=== PATIENT | female | born 1965 | race African-American/Black ===

== ENCOUNTER 2018-04-18 07:42 | Emergency (ER) | payer OTHER ==
[2018-04-18 08:03] VITALS: BP 152/95
[2018-04-18] MEDS ORDERED: BENZTROPINE MESYLATE 1 MG TABLET PO ONE (08:56)
--- NOTE | 2018-04-18 08:57 | ER Document Report ---
ED General - General Chief Complaint: Psych Problem Stated Complaint: AUDITORY HALLUCINATIONS Time Seen by Provider: 04/18/18 08:50 Mode of Arrival: Ambulatory Information source: Patient TRAVEL OUTSIDE OF THE [place] IN LAST 30 DAYS: No - HPI Notes: 52-year-old female with a medical history of schizoaffective disorder. presents to the ED with complaints of having auditory hallucinations in which the voices want to harm her, patient has been out of her Cogentin for the last few days since sheAnd having paranoia is on vacation to visit her from [place]. Denies any suicidal or homicidal ideation. Patient was recently hospitalized 2 weeks ago and [place] for schizoaffective disorder and medications will be adjusted. Denies fevers, chills, chest pain,palpitations, shortness of breath, dyspnea, nausea, vomiting, diarrhea, abdominal pain, hematuria,blurred vision, double vision, loss of vision, speech changes, LH, dizziness, syncope, headaches, wheezing, ST, URI, neck pain, weakness, bowel or bladder dysfunction, saddle anesthesia, numbness or tingling in bilateral upper or lower extremities equally, muscle paralysis, weakness in bilateral upper or lower extremities equally or rash. Denies IV drug use. - Related Data Allergies/Adverse Reactions: No Known Allergies Allergy (Verified 04/18/18 14:32) Past Medical History - General Information source: Patient - Social History Smoking Status: Current Every Day Smoker Chew tobacco use (# tins/day): No Frequency of alcohol use: Occasional Drug Abuse: None Family History: Reviewed & Not Pertinent Patient has suicidal ideation: No Patient has homicidal ideation: No Renal/ Medical History: Denies: Hx Peritoneal Dialysis Review of Systems - Review of Systems Constitutional: No symptoms reported EENT: No symptoms reported Cardiovascular: No symptoms reported Respiratory: No symptoms reported Gastrointestinal: No symptoms reported Genitourinary: No symptoms reported Female Genitourinary: No symptoms reported Musculoskeletal: No symptoms reported Skin: No symptoms reported Hematologic/Lymphatic: No symptoms reported Neurological/Psychological: See HPI, Hallucinations Physical Exam - Vital signs Vitals: Temp Pulse Resp BP Pulse Ox 98.7 F 90 16 152/95 H 98 04/18/18 07:52 04/18/18 07:52 04/18/18 07:52 04/18/18 07:52 04/18/18 07:52 - Notes Notes: PHYSICAL EXAMINATION: GENERAL: Well-appearing, well-nourished and in no acute distress. HEAD: Atraumatic, normocephalic. EYES: Pupils equal round and reactive to light, extraocular movements intact, conjunctiva are normal. ENT: Nares patent, oropharynx clear without exudates. Moist mucous membranes. NECK: Normal range of motion, supple without lymphadenopathy LUNGS: Breath sounds clear to auscultation bilaterally and equal. No wheezes rales or rhonchi. HEART: Regular rate and rhythm without murmurs ABDOMEN: Soft, nontender, nondistended abdomen. No guarding, no rebound. No masses appreciated. Female : deferred Musculoskeletal: Normal range of motion, no pitting or edema. No cyanosis. NEUROLOGICAL: Cranial nerves grossly intact. Normal speech, normal gait. Normal sensory, motor exams PSYCH: Normal mood, normal affect. SKIN: Warm, Dry, normal turgor, no rashes or lesions noted. Course - Re-evaluation Re-evalutation: 04/18/18 09:04 52-year-old female presents to the ED for evaluation due to having auditory hallucinations due to not being on her medication since she is traveling out of [facility] and left her medications at home. Patient denies any suicidal or homicidal ideations. Patient states she is feeling paranoid. Patient states she does not have her Cogentin 1 mg. Patient was recently hospitalized in [place] for mental health evaluation which they were switching her between Abilify and Latuda however they settled on Zyprexa and Cogentin. Patient has a follow-up primary care and psychiatric appointment on April 23, and 25 of April. Mental health consult was placed. Patient given 1 g of Cogentin now. Patient does not appear to be suicidal homicidal at this time. Dr. Brent Calhoun assessed patient, made medication adjustments with Thorazine every 8 hours 25 mg tablets prn as well as Cogentin 1 mg twice daily along with her taking her Zyprexa. Patient is safe, denies any homicidal suicidal ideation. States she does need medication adjustment. 04/18/18 09:38 NEEDS TO PUT IN LABS - Vital Signs Vital signs: Temp Pulse Resp BP Pulse Ox 98.7 F 90 16 152/95 H 98 04/18/18 07:52 04/18/18 07:52 04/18/18 07:52 04/18/18 07:52 04/18/18 07:52 - Laboratory Result Diagrams: 04/18/18 09:00 04/18/18 09:00 Laboratory results interpreted by me: 04/18/18 09:00 Sodium 146.4 H Glucose 114 H Discharge - Discharge Clinical Impression: Schizo affective schizophrenia Condition: Stable Disposition: HOME, SELF-CARE Instructions: Schizophrenia ([facility]) Additional Instructions: You are seen by mental health team today, they suggested starting on 12/11/2024 milligrams every 8 hours as needed, also would like you to take Cogentin 1 mg twice a day along with her Zyprexa. Please follow-up with mental health is Danielbakari has scheduled. If you experience any worsening auditory hallucinations, intent to harm himself or others please return to the emergency room by EMS after calling 911 Return immediately for any new or worsening symptoms. Follow up with primary care provider, call tomorrow to make followup appointment. Prescriptions: Benztropine Mesylate [Cogentin 1 mg Tablet] 1 tab PO BID #14 tab Chlorpromazine HCl [Thorazine 25 Mg Tablet] 25 mg PO Q8 #28 tablet Referrals: LALO MATOS MD [ACTIVE STAFF] - Follow up in 3-5 days ADITI CALHOUN PSYD [ALLIED HEALTH PROFESSIONAL] - Follow up in 3-5 days (prn)
[2018-04-18 09:25] LABS: ABSOLUTE BASOPHILS # (AUTO) 0.1 10^3/uL (0.0-0.2); ABSOLUTE EOSINOPHILS # (AUTO) 0.3 10^3/uL (0.0-0.6); ABSOLUTE LYMPHOCYTES (AUTO) 1.3 10^3/uL (0.5-4.7); ABSOLUTE MONOCYTES (AUTO) 0.7 10^3/uL (0.1-1.4); ABSOLUTE NEUT (AUTO) 6.9 10^3/uL (1.7-8.2); BASOPHILS % (AUTO) 0.6 % (0-2); EOSINOPHILS % (AUTO) 3.1 % (0-6); HEMATOCRIT 42.1 % (36.0-47.0); HEMOGLOBIN 14.9 g/dL (12.0-15.5); LYMPHOCYTES % (AUTO) 14.6 % (13-45); MEAN CORPUSCULAR HEMOGLOBIN 33.3 pg (27.0-33.4); MEAN CORPUSCULAR HGB CONC 35.4 g/dL (32.0-36.0); MEAN CORPUSCULAR VOLUME 94 fl (80-97); MONOCYTES % (AUTO) 7.1 % (3-13); PLATELET COUNT 267 10^3/uL (150-450); RED BLOOD COUNT 4.47 10^6/uL (3.72-5.28); RED CELL DISTRIBUTION WIDTH 12.7 % (11.5-14.0); SEGMENTED NEUTROPHILS % (AUTO) 74.6 % (42-78); TOTAL CELLS COUNTED % (AUTO) 100 %; WHITE BLOOD COUNT 9.2 10^3/uL (4.0-10.5)
[2018-04-18 09:48] LABS: ALANINE AMINOTRANSFERASE 18 U/L (9-52); ALBUMIN 4.3 g/dL (3.5-5.0); ALKALINE PHOSPHATASE 107 U/L (38-126); ANION GAP 14 (5-19); ASPARTATE AMINO TRANSFERASE 29 U/L (14-36); BILIRUBIN,DIRECT 0.3 mg/dL (0.0-0.4); BILIRUBIN,TOTAL 0.3 mg/dL (0.2-1.3); BLOOD UREA NITROGEN 10 mg/dL (7-20); CALCIUM 9.5 mg/dL (8.4-10.2); CARBON DIOXIDE 26 mmol/L (22-30); CHLORIDE 106 mmol/L (98-107); GLUCOSE 114 mg/dL (75-110); POTASSIUM 3.7 mmol/L (3.6-5.0); SODIUM 146.4 mmol/L (137-145); TOTAL PROTEIN 7.8 g/dL (6.3-8.2)
== END 2018-04-18 09:42 | disposition home or self-care (01) ==
LOC: ER 07:42
DX: F20.9 Schizophrenia, unspecified (principal); R44.0 Auditory hallucinations; F17.200 Nicotine dependence, unspecified, uncomplicated
CPT/HCPCS: 36415; 80053; 85025; 99284

== ENCOUNTER 2018-04-18 14:29 | Emergency (ER) | payer OTHER ==
[2018-04-18 14:42] VITALS: BP 144/97
== END 2018-04-18 18:19 | disposition left against medical advice (07) ==
LOC: ER 14:29
DX: Z98.51 Tubal ligation status (principal)

== ENCOUNTER 2018-12-20 12:24 | Emergency (ER) | payer OTHER ==
--- NOTE | 2018-12-20 12:50 | ER Document Report ---
ED Medical Screen (RME) - General Chief Complaint: Leg Swelling Stated Complaint: LEG PAIN Time Seen by Provider: 12/20/18 12:37 Primary Care Provider: KERRY SIMMONS [Primary Care Provider] - Follow up as needed TRAVEL OUTSIDE OF THE [place] IN LAST 30 DAYS: No - HPI Notes: 12/20/18 12:48 Patient is a 53-year-old female with a history of hypertension who presents to the emergency department complaining of bilateral lower extremity swelling over the past week. Patient states that she has been trying compression stockings with minimal relief. She does take hydrochlorothiazide daily. Patient states that she does have occasional dyspnea on exertion associated. No cardiopulmonary medical history otherwise. Denies any prolonged immobilization, distance travel, recent surgery/trauma, personal cancer history, hormone use, or previous DVT/PE. Denies MCDONALD, fever, neck pain, URI, CP, Abd pain, or rash. I have treated and performed a rapid initial assessment of this patient. A comprehensive ED assessment and evaluation of the patient, analysis of test results and completion of medical decision making process will be conducted by additional ED providers. PHYSICAL EXAMINATION: GENERAL: Well-appearing, well-nourished and in no acute distress. A&Ox4. Answers questions appropriately. LUNGS: Breath sounds clear to auscultation bilaterally and equal. No wheezes rales or rhonchi. HEART: Regular rate and rhythm without murmurs, rubs, gallops. Extremities: >= 2+ pitting edema b/l LE's. No cold extremities b/l. NEUROLOGICAL: Normal speech, normal gait. PSYCH: Normal mood, normal affect. - Related Data Allergies/Adverse Reactions: No Known Allergies Allergy (Verified 12/20/18 12:27) Past Medical History Renal/ Medical History: Denies: Hx Peritoneal Dialysis Physical Exam - Vital signs Vitals: Temp Pulse Resp BP Pulse Ox 98.1 F 97 15 134/87 H 95 12/20/18 12:32 12/20/18 12:32 12/20/18 12:32 12/20/18 12:32 12/20/18 12:32 Course - Vital Signs Vital signs: Temp Pulse Resp BP Pulse Ox 98.1 F 97 15 134/87 H 95 12/20/18 12:32 12/20/18 12:32 12/20/18 12:32 12/20/18 12:32 12/20/18 12:32 Doctor's Discharge - Discharge Referrals: LOCALMD,NO [Primary Care Provider] - Follow up as needed
[2018-12-20 13:24] LABS: ABSOLUTE EOSINOPHILS # (AUTO) 0.1 10^3/uL (0.0-0.6); ABSOLUTE LYMPHOCYTES (AUTO) 1.3 10^3/uL (0.5-4.7); ABSOLUTE MONOCYTES (AUTO) 0.5 10^3/uL (0.1-1.4); BASOPHILS % (AUTO) 0.2 % (0-2); EOSINOPHILS % (AUTO) 1.4 % (0-6); HEMATOCRIT 38.1 % (36.0-47.0); HEMOGLOBIN 13.2 g/dL (12.0-15.5); LYMPHOCYTES % (AUTO) 14.6 % (13-45); MEAN CORPUSCULAR HEMOGLOBIN 32.5 pg (27.0-33.4); MEAN CORPUSCULAR HGB CONC 34.7 g/dL (32.0-36.0); MEAN CORPUSCULAR VOLUME 94 fl (80-97); PLATELET COUNT 211 10^3/uL (150-450); RED BLOOD COUNT 4.06 10^6/uL (3.72-5.28); SEGMENTED NEUTROPHILS % (AUTO) 78.8 % (42-78); TOTAL CELLS COUNTED % (AUTO) 100 %
--- NOTE | 2018-12-20 13:42 | RADIOLOGY REPORT (SQ) ---
EXAM DESCRIPTION: CHEST SINGLE VIEW COMPLETED DATE/TIME: 12/20/2018 1:35 pm REASON FOR STUDY: GARCIA COMPARISON: None. EXAM PARAMETERS: NUMBER OF VIEWS: One view. TECHNIQUE: Single frontal radiographic view of the chest acquired. RADIATION DOSE: NA LIMITATIONS: None. FINDINGS: LUNGS AND PLEURA: No opacities, masses or pneumothorax. No pleural effusion. MEDIASTINUM AND HILAR STRUCTURES: No masses. Contour normal. HEART AND VASCULAR STRUCTURES: Heart normal in size. Normal vasculature. BONES: No acute findings. HARDWARE: None in the chest. OTHER: No other significant finding. IMPRESSION: NO ACUTE RADIOGRAPHIC FINDING IN THE CHEST. TECHNICAL DOCUMENTATION: JOB ID: [id number] [employer]- All Rights Reserved Reading location - IP/workstation name: [email or web address]
[2018-12-20 13:44] LABS: ALANINE AMINOTRANSFERASE 26 U/L (9-52); ALBUMIN 3.7 g/dL (3.5-5.0); ALKALINE PHOSPHATASE 95 U/L (38-126); ANION GAP 7 (5-19); ASPARTATE AMINO TRANSFERASE 29 U/L (14-36); BILIRUBIN,DIRECT 0.2 mg/dL (0.0-0.4); BILIRUBIN,TOTAL 0.5 mg/dL (0.2-1.3); BLOOD UREA NITROGEN 8 mg/dL (7-20); CALCIUM 9.1 mg/dL (8.4-10.2); CARBON DIOXIDE 30 mmol/L (22-30); CHLORIDE 100 mmol/L (98-107); GLUCOSE 109 mg/dL (75-110); POTASSIUM 3.6 mmol/L (3.6-5.0); SODIUM 136.9 mmol/L (137-145); TOTAL PROTEIN 6.9 g/dL (6.3-8.2)
[2018-12-20 13:56] LABS: NT PRO BNP 91 pg/mL (5-900)
[2018-12-20 13:57] LABS: TROPONIN I < 0.012 ng/mL
[2018-12-20] MEDS ORDERED: FUROSEMIDE INJ/PF 20 MG/2 ML SDV IV ONE (15:11)
[2018-12-20 15:20] VITALS: BP 105/75
--- NOTE | 2018-12-20 15:22 | ER Document Report ---
ED Extremity Problem, Lower - General Chief Complaint: Leg Swelling Stated Complaint: LEG PAIN Time Seen by Provider: 12/20/18 12:37 Primary Care Provider: KERRY SIMMONS [NO LOCAL MD] - Follow up as needed Mode of Arrival: Ambulatory Information source: Patient Notes: Patient is a 53-year-old female who presents the emergency department chief complaint of bilateral lower extremity edema swelling. Patient reports this is been an ongoing problem, states when she wears compression stockings her symptoms resolved but when she takes them off the leg swelling returns. She states that she is already taking HCTZ 25 mg daily. She denies any chest pain, shortness of breath, difficulty breathing or dyspnea. TRAVEL OUTSIDE OF THE [place] IN LAST 30 DAYS: No - Related Data Allergies/Adverse Reactions: No Known Allergies Allergy (Verified 12/20/18 12:27) Past Medical History - General Information source: Patient - Social History Smoking Status: Current Every Day Smoker Chew tobacco use (# tins/day): No Frequency of alcohol use: None Drug Abuse: None Family History: Reviewed & Not Pertinent Patient has suicidal ideation: No Patient has homicidal ideation: No - Past Medical History Cardiac Medical History: Reports: Hx Hypertension Renal/ Medical History: Denies: Hx Peritoneal Dialysis Psychiatric Medical History: Reports: Hx Bipolar Disorder, Hx Schizophrenia - schizo affective Past Surgical History: Reports: Hx Section Review of Systems - Review of Systems Constitutional: No symptoms reported EENT: No symptoms reported Cardiovascular: Edema Respiratory: No symptoms reported Gastrointestinal: No symptoms reported Genitourinary: No symptoms reported Female Genitourinary: No symptoms reported Musculoskeletal: No symptoms reported Skin: No symptoms reported Hematologic/Lymphatic: No symptoms reported Neurological/Psychological: No symptoms reported Physical Exam - Vital signs Vitals: Temp Pulse Resp BP Pulse Ox 98.1 F 97 15 134/87 H 95 12/20/18 12:32 12/20/18 12:32 12/20/18 12:32 12/20/18 12:32 12/20/18 12:32 - Notes Notes: PHYSICAL EXAMINATION: GENERAL: Well-appearing, well-nourished and in no acute distress. HEAD: Atraumatic, normocephalic. EYES: Pupils equal round and reactive to light, extraocular movements intact, conjunctiva are normal. ENT: Nares patent, oropharynx clear without exudates. Moist mucous membranes. NECK: Normal range of motion, supple without lymphadenopathy LUNGS: Breath sounds clear to auscultation bilaterally and equal. No wheezes rales or rhonchi. HEART: Regular rate and rhythm without murmurs, bilateral 2+ pitting edema to lower extremities. ABDOMEN: Soft, nontender, nondistended abdomen. No guarding, no rebound. No masses appreciated. Female : deferred Musculoskeletal: Normal range of motion, no pitting or edema. No cyanosis. NEUROLOGICAL: Cranial nerves grossly intact. Normal speech, normal gait. Normal sensory, motor exams PSYCH: Normal mood, normal affect. SKIN: Warm, Dry, normal turgor, no rashes or lesions noted. Course - Re-evaluation Re-evalutation: CBC and CMP are unremarkable. Troponin is negative. Patient's chest x-ray is unremarkable with no evidence of heart failure. Patient does continue to have b ilateral peripheral edema. Spoke to attending physician, recommendation to give small dose of IV Lasix with plan to discharge patient home. - Vital Signs Vital signs: Temp Pulse Resp BP Pulse Ox 97.6 F 97 17 105/75 98 12/20/18 15:17 12/20/18 12:32 12/20/18 15:17 12/20/18 15:17 12/20/18 15:17 - Laboratory Result Diagrams: 12/20/18 13:02 12/20/18 13:02 Laboratory results interpreted by me: 12/20/18 12/20/18 13:02 13:02 Seg Neutrophils % 78.8 H Sodium 136.9 L Discharge - Discharge Clinical Impression: Peripheral edema Condition: Stable Disposition: HOME, SELF-CARE Additional Instructions: Edema, Peripheral You have swelling in your legs. This is called peripheral edema. It can be caused by "leaky capillaries," inflammation, disease of the leg veins, or excess salt and water in your body. Edema may be a sign of heart, kidney, or liver disease. A medical evaluation can determine if there is a serious underlying cause for your edema. Avoid prolonged standing. If you must sit for a long time, occasionally get up and walk around or elevate your legs. Support stockings can be helpful in limiting swelling. Often diuretic or water pills are used to remove excess salt and water from your body. Call the doctor or return if you develop increased swelling, pain, or redness, shortness of breath, chest pain, or any other significant change. Your blood work and chest x-ray today were normal. You are given a dose of IV Lasix here in the emergency department to help with your bilateral leg swelling. As we discussed, drink plenty of fluids, wear your compression stockings, elevate your legs as much as possible above the level of your heart, and decreased your sodium intake. Please call your primary care provider to schedule a follow-up appointment for the next 2-3 days. Return to the emergency department if you experience difficulty breathing, shortness of breath or any other symptom that is concerning to you. Forms: Return to Work Referrals: LOCALMD,NO [NO LOCAL MD] - Follow up as needed
--- NOTE | 2018-12-21 13:13 | EKG REPORT ---
SEVERITY:- ABNORMAL ECG - SINUS RHYTHM CONSIDER LEFT VENTRICULAR HYPERTROPHY BORDERLINE PROLONGED QT INTERVAL : Confirmed by: Nancy Leonard 21-Dec-2018 13:13:25
== END 2018-12-20 15:51 | disposition home or self-care (01) ==
LOC: ER 12:24
DX: R60.9 Edema, unspecified (principal); I10 Essential (primary) hypertension
CPT/HCPCS: 93005; 99284; 96374; 36415; 85025; 80053; 84484; 83880; 71045; 93010; J1940

== ENCOUNTER 2019-01-11 14:00 | Emergency (ER) | payer OTHER ==
--- NOTE | 2019-01-11 14:35 | ER Document Report ---
ED Medical Screen (RME) - General Chief Complaint: Psych Problem Stated Complaint: PSYCH EVAL Time Seen by Provider: 01/11/19 14:26 Notes: 53-year-old -[place] female with known history of schizophrenia coming in today with increased auditory and visual hallucinations. No change in her medications recently. Voices are telling her to hurt her self which she says is typical when she does have hallucinations like this. She does not however have any thoughts or intentions of acting on the suggestions of the voices. Came in to be evaluated by the psych provider. I have treated and performed a rapid initial assessment of this patient. A comprehensive ED assessment and evaluation of the patient, analysis of test results and completion of medical decision making process will be conducted by additional ED providers. PHYSICAL EXAMINATION: GENERAL: Well-appearing, well-nourished and in no acute distress. A&Ox4. Answers questions appropriately. ABDOMEN: Soft, nondistended abdomen. Extremities: No cyanosis, clubbing, or edema b/l. NEUROLOGICAL: Normal speech, normal gait. PSYCH: Normal mood, normal affect. TRAVEL OUTSIDE OF THE [place] IN LAST 30 DAYS: No - Related Data Allergies/Adverse Reactions: No Known Allergies Allergy (Verified 01/11/19 14:01) Past Medical History - Past Medical History Cardiac Medical History: Reports: Hx Hypertension Renal/ Medical History: Denies: Hx Peritoneal Dialysis Psychiatric Medical History: Reports: Hx Bipolar Disorder, Hx Schizophrenia - schizo affective Past Surgical History: Reports: Hx Section Physical Exam - Vital signs Vitals: Temp Pulse Resp BP Pulse Ox 98.0 F 87 16 121/83 95 01/11/19 14:04 01/11/19 14:04 01/11/19 14:04 01/11/19 14:04 01/11/19 14:04 Course - Vital Signs Vital signs: Temp Pulse Resp BP Pulse Ox 98.0 F 87 16 121/83 95 01/11/19 14:04 01/11/19 14:04 01/11/19 14:04 01/11/19 14:04 01/11/19 14:04
--- NOTE | 2019-01-11 15:10 | ER Document Report ---
Addendum entered and electronically signed by SELVIN FARLEY DO 01/12/19 11:37: Discharge - Discharge Clinical Impression: Hallucinations Schizophrenia Qualifiers: Schizophrenia type: unspecified Qualified Code(s): F20.9 - Schizophrenia, unspecified Condition: Stable Disposition: HOME, SELF-CARE Additional Instructions: You have been evaluated by both medical and behavioral health providers while in the emergency department. You have been cleared from both acute medical and psychiatric services. You stated you often need to take two Elavil for sleep at night when you are prescribed one. Doing so has caused you to run out 10-11 days ago. You reported using Benadryl which doesn't help. The doubling up of the Elavil can cause/increase/exacerbate psychosis (hallucinations). You also reported since being out of the Elavil not sleeping well (lack of sleep will also cause/increase/exacerbate psychosis such as hallucinations). You should take all of your prescribed medications as directed, no more or no less. Hallucinations You seem to be having hallucinations. Hallucinations are seeing, hearing, or feeling things that don't exist. These symptoms commonly occur with drug abuse and schizophrenia. Drugs like PCP, LSD, MDMA, peyote, and "psychedelic mushrooms" can cause frightening hallucinations. Users of methamphetamine or crack cocaine often see and feel bugs crawling on their skin. Patients with schizophrenia may hear voices that no one else can hear. The delusions of schizophrenia often involve conspiracies or relationships that are not real. When symptoms are due to drug abuse, the mental state usually improves as the drug wears off. Someone you trust should be with you until you are better, to protect you and calm your fears. Tranquilizer medicine is helpful at controlling hallucinations, anxiety, and deluded thoughts. Get a proper diet and enough sleep. Most patients do very well when they get proper medical treatment and social support. You should return at once if your symptoms get worse, if you are having suicidal thoughts or thoughts about hurting others, or if you feel that you are in danger. Schizophrenia Schizophrenia is a chemical disorder that affects how the brain functions. The exact cause is unknown, but it tends to run in families. It is NOT caused by emotional trauma. Schizophrenia causes disordered thinking, including unusual beliefs and inability to "process" happenings around the patient. Patients with schizophrenia benefit greatly from medicine. These medicines are called antipsychotics. Never stop the medicine without the doctor's approval. Counselling may help the patient deal with his disease. Schizophrenics require a very ordered environment. Stresses and sudden changes may bring out symptoms. Drugs and alcohol abuse may become problems. Contact the counsellor or crisis line if there are thoughts of suicide or of harming others, or if you become aware of unusual thoughts or beliefs Follow Up Care: You have been provided prescriptions for Haldol 5MG twice a day as needed to aid with management of the hallucinations you reported, as well as your already prescribed Elavil 75MG at night for sleep. You should take these medication, as well as all of your others, as directed, no more or less. Taking more or less of medications can cause/increase/exacerbate symptoms of psychosis. You reported you have an initial intake appointment with [facility] ([facility]) on 02/18/19. You should attend this appointment. You may be able to call in daily to see if they have any cancelations. You have been provided the mental health resource sheet which highlighted [facility] )[facility]) for crisis, talk therapy and linkage to other supports/services. If your symptoms persist or worsen contact you physician immediately, utilize mobile crisis or return to the emergency department. Prescriptions: Amitriptyline HCl [Elavil 75 Mg Tablet] 75 mg PO QHS #10 tablet Haloperidol [Haldol 5 mg Tablet] 5 mg PO Q12H PRN #14 tablet PRN Reason: Anxiety/Agitation Referrals: [facility] [Outside] - 02/18/19 [facility] [Outside] - Follow up as needed SHANNA ENGLAND PA-C [Primary Care Provider] - Follow up as needed Addendum entered and electronically signed by REZA CROW LPC 01/12/19 11:22: Discharge - Discharge Clinical Impression: Hallucinations Schizophrenia Qualifiers: Schizophrenia type: unspecified Qualified Code(s): F20.9 - Schizophrenia, unspecified Condition: Stable Disposition: HOME, SELF-CARE Additional Instructions: You have been evaluated by both medical and behavioral health providers while in the emergency department. You have been cleared from both acute medical and psychiatric services. You stated you often need to take two Elavil for sleep at night when you are prescribed one. Doing so has caused you to run out 10-11 days ago. You reported using Benadryl which doesn't help. The doubling up of the Elavil can cause/increase/exacerbate psychosis (hallucinations). You also reported since being out of the Elavil not sleeping well (lack of sleep will also cause/increase/exacerbate psychosis such as hallucinations). You should take all of your prescribed medications as directed, no more or no less. Hallucinations You seem to be having hallucinations. Hallucinations are seeing, hearing, or feeling things that don't exist. These symptoms commonly occur with drug abuse and schizophrenia. Drugs like PCP, LSD, MDMA, peyote, and "psychedelic mushrooms" can cause frightening hallucinations. Users of methamphetamine or crack cocaine often see and feel bugs crawling on their skin. Patients with schizophrenia may hear voices that no one else can hear. The delusions of schizophrenia often involve conspiracies or relationships that are not real. When symptoms are due to drug abuse, the mental state usually improves as the drug wears off. Someone you trust should be with you until you are better, to protect you and calm your fears. Tranquilizer medicine is helpful at controlling hallucinations, anxiety, and deluded thoughts. Get a proper diet and enough sleep. Most patients do very well when they get proper medical treatment and social support. You should return at once if your symptoms get worse, if you are having suicidal thoughts or thoughts about hurting others, or if you feel that you are in danger. Schizophrenia Schizophrenia is a chemical disorder that affects how the brain functions. The exact cause is unknown, but it tends to run in families. It is NOT caused by emotional trauma. Schizophrenia causes disordered thinking, including unusual beliefs and inability to "process" happenings around the patient. Patients with schizophrenia benefit greatly from medicine. These medicines are called antipsychotics. Never stop the medicine without the doctor's approval. Counselling may help the patient deal with his disease. Schizophrenics require a very ordered environment. Stresses and sudden changes may bring out symptoms. Drugs and alcohol abuse may become problems. Contact the counsellor or crisis line if there are thoughts of suicide or of harming others, or if you become aware of unusual thoughts or beliefs Follow Up Care: You have been provided prescriptions for Haldol 5MG twice a day as needed to aid with management of the hallucinations you reported, as well as your already prescribed Elavil 75MG at night for sleep. You should take these medication, as well as all of your others, as directed, no more or less. Taking more or less of medications can cause/increase/exacerbate symptoms of psychosis. You reported yo u have an initial intake appointment with [facility] ([facility]) on 02/18/19. You should attend this appointment. You may be able to call in daily to see if they have any cancelations. You have been provided the mental health resource sheet which highlighted [facility] )[facility]) for crisis, talk therapy and linkage to other supports/services. If your symptoms persist or worsen contact you physician immediately, utilize mobile crisis or return to the emergency department. Referrals: [facility] [Outside] - 02/18/19 [facility] [Outside] - Follow up as needed SHANNA ENGLAND PA-C [Primary Care Provider] - Follow up as needed Addendum entered and electronically signed by REZA CROW LPC 01/12/19 11:15: Discharge - Discharge Clinical Impression: Hallucinations Schizophrenia Qualifiers: Schizophrenia type: unspecified Qualified Code(s): F20.9 - Schizophrenia, unspecified Condition: Stable Disposition: HOME, SELF-CARE Additional Instructions: You have been evaluated by both medical and behavioral health providers while in the emergency department. You have been cleared from both acute medical and psychiatric services. You stated you often need to take two Elavil for sleep at night when you are prescribed one. Doing so has caused you to run out 10-11 days ago. You reported using Benadryl which doesn't help. The doubling up of the Elavil can cause/increase/exacerbate psychosis (hallucinations). You also reported since being out of the Elavil not sleeping well (lack of sleep will also cause/increase/exacerbate psychosis such as hallucinations). You should take all of your prescribed medications as directed, no more or no less. Hallucinations You seem to be having hallucinations. Hallucinations are seeing, hearing, or feeling things that don't exist. These symptoms commonly occur with drug abuse and schizophrenia. Drugs like PCP, LSD, MDMA, peyote, and "psychedelic mushrooms" can cause frightening hallucinations. Users of methamphetamine or crack cocaine often see and feel bugs crawling on their skin. Patients with schizophrenia may hear voices that no one else can hear. The delusions of schizophrenia often involve conspiracies or relationships that are not real. When symptoms are due to drug abuse, the mental state usually improves as the drug wears off. Someone you trust should be with you until you are better, to protect you and calm your fears. Tranquilizer medicine is helpful at controlling hallucinations, anxiety, and deluded thoughts. Get a proper diet and enough sleep. Most patients do very well when they get proper medical treatment and social support. You should return at once if your symptoms get worse, if you are having suicidal thoughts or thoughts about hurting others, or if you feel that you are in danger. Schizophrenia Schizophrenia is a chemical disorder that affects how the brain functions. The exact cause is unknown, but it tends to run in families. It is NOT caused by emotional trauma. Schizophrenia causes disordered thinking, including unusual beliefs and inability to "process" happenings around the patient. Patients with schizophrenia benefit greatly from medicine. These medicines are called antipsychotics. Never stop the medicine without the doctor's approval. Counselling may help the patient deal with his disease. Schizophrenics require a very ordered environment. Stresses and sudden changes may bring out symptoms. Drugs and alcohol abuse may become problems. Contact the counsellor or crisis line if there are thoughts of suicide or of harming others, or if you become aware of unusual thoughts or beliefs Follow Up Care: You have been provided prescriptions for Haldol 5MG twice a day as needed to aid with management of the hallucinations you reported, as well as your already prescribed Elavil 75MG at night for sleep. You should take these medication, as well as all of your others, as directed, no more or less. Taking more or less of medications can cause/increase/exacerbate symptoms of psychosis. You reported you have an initial intake appointment with [facility] ([facility]) on 02/18/19. You should attend this appointment. You may be able to call in daily to see if they have any cancelations. You have been provided the mental health resource sheet which highlighted [facility] )[facility]) for crisis, talk therapy and linkage to other supports/services. Referrals: SHANNA ENGLAND PA-C [Primary Care Provider] - Follow up as needed [facility] [Outside] - Follow up as needed [facility] [Outside] - 02/18/19 Original Note: ED General - General Chief Complaint: Psych Problem Stated Complaint: PSYCH EVAL Time Seen by Provider: 01/11/19 14:26 Primary Care Provider: SHANNA ENGLAND PA-C [Primary Care Provider] - Follow up as needed Notes: Patient is a 53-year-old female with history of paranoid schizophrenia that presents to the emergency department for chief complaint of hallucinations, and increased paranoia. Patient states she is been having auditory hallucinations, that have been telling her, that she is a "child molester, and she should kill herself." She is also thinking that other people are thinking the same thoughts, when she looks around at her relatives, she thinks that they are talking about her, she states that she is been more claustrophobic as well, she is been having the symptoms now for a few days and the been getting particularly worse, and she is worried that she will go into a complete psychotic break which she has had in the past but spent some time. She denies any suicidal or homicidal ideations at the conversation with me currently. Past Medical History: Paranoid schizophrenia, hypertension, peripheral neuropathy Past Surgical History: Hysterectomy, hernia repair Social History: Admits to smoking cigarettes, denies alcohol or drug use. Family History: Reviewed and noncontributory for presenting illness Allergies: Reviewed, see documented allergy list. REVIEW OF SYSTEMS: Other than noted above, the 12 point review of systems was reviewed with the patient and were negative, all pertinent findings are included in the HPI. PHYSICAL EXAMINATION: Vital signs reviewed, nursing noted reviewed. GENERAL: Well-appearing, well-nourished and in no acute distress. HEAD: Atraumatic, normocephalic. EYES: Eyes appear normal, extraocular movements intact, sclera anicteric, con junctiva are normal. ENT: nares patent, oropharynx clear without exudates. Moist mucous membranes. NECK: Normal range of motion, supple without lymphadenopathy LUNGS: Breath sounds clear to auscultation bilaterally and equal. No wheezes rales or rhonchi. HEART: Regular rate and rhythm without murmurs ABDOMEN: Soft, nontender, normoactive bowel sounds. No rebound, guarding, or rigidity. No masses appreciated. EXTREMITIES: Nontender, good range of motion, no pitting or edema. NEUROLOGICAL: No focal neurological deficits. Moves all extremities spontaneously Motor and sensory grossly intact on exam. PSYCH: Normal mood, somewhat of a flat affect, states she is hearing voices, but is appropriately answering questions and not actively delusional. SKIN: Warm, Dry, normal turgor, no rashes or lesions noted on exposed skin TRAVEL OUTSIDE OF THE [place] IN LAST 30 DAYS: No - Related Data Allergies/Adverse Reactions: No Known Allergies Allergy (Verified 01/11/19 14:01) Past Medical History - Social History Smoking Status: Current Every Day Smoker Frequency of alcohol use: None Drug Abuse: None Family History: Reviewed & Not Pertinent Patient has suicidal ideation: No - pt has hallucinations telling her to harm self and that they will harm her Patient has homicidal ideation: No - pt has hallucination telling her that people will get hurt - Past Medical History Cardiac Medical History: Reports: Hx Hypertension Renal/ Medical History: Denies: Hx Peritoneal Dialysis Psychiatric Medical History: Reports: Hx Bipolar Disorder, Hx Schizophrenia - schizo affective Past Surgical History: Reports: Hx Abdominal Surgery - mesh for hernia repair, Hx Section, Hx Hysterectomy, Hx Orthopedic Surgery - R wrist Physical Exam - Vital signs Vitals: Temp Pulse Resp BP Pulse Ox 98.0 F 87 16 121/83 95 01/11/19 14:04 01/11/19 14:04 01/11/19 14:04 01/11/19 14:04 01/11/19 14:04 Course - Re-evaluation Re-evalutation: Patient seen and examined, vital signs reviewed. Medical screening testing was ordered including bloodwork, EKG, and toxicology. Results of testing were reviewed. Testing demonstrated mild leukocytosis, nonspecific, no overt signs of infection on my examination, work-up otherwise unremarkable. Patient has been stable from a hemodynamic standpoint. At this point I feel that the patient is medically cleared and can be further evaluated from a psychiatric standpoint for final disposition from the emergency department. Patient updated on plan of care. I discussed the case with the behavioral health team, and they recommended resuming the patient's home medications, possibly increasing the Haldol, to better stabilize her current symptoms, will follow up on these recommendations, patient voluntarily will stay overnight in the emergency department to see response. We will give the patient an additional dose of Haldol 5mg PO, and otherwise all of her home medications have been resumed, and her med rec was completed. Laboratory 01/11/19 01/11/19 15:08 15:08 WBC 12.2 H RBC 4.56 Hgb 14.4 Hct 43.2 MCV 95 MCH 31.6 MCHC 33.4 RDW 13.1 Plt Count 251 Seg Neutrophils % 71.0 Lymphocytes % 19.5 Monocytes % 7.2 Eosinophils % 1.9 Basophils % 0.4 Absolute Neutrophils 8.7 H Absolute Lymphocytes 2.4 Absolute Monocytes 0.9 Absolute Eosinophils 0.2 Absolute Basophils 0.0 Sodium 143.7 Potassium 3.8 Chloride 102 Carbon Dioxide 31 H Anion Gap 11 BUN 18 Creatinine 0.83 Est GFR ( Amer) > 60 Est GFR (Non-Af Amer) > 60 Glucose 102 Calcium 9.4 Total Bilirubin 0.6 Direct Bilirubin 0.2 Neonat Total Bilirubin Not Reportable Neonat Direct Bilirubin Not Reportable Neonat Indirect Bili Not Reportable AST 27 ALT 19 Alkaline Phosphatase 103 Total Protein 7.6 Albumin 4.0 Salicylates < 1.0 L Acetaminophen < 10 L Serum Alcohol < 10 - Vital Signs Vital signs: Temp Pulse Resp BP Pulse Ox 98.0 F 87 16 121/83 95 01/11/19 14:04 01/11/19 14:04 01/11/19 14:04 01/11/19 14:04 01/11/19 14:04 - Laboratory Result Diagrams: 01/11/19 15:08 01/11/19 15:08 Laboratory results interpreted by me: 01/11/19 01/11/19 15:08 15:08 WBC 12.2 H Absolute Neutrophils 8.7 H Carbon Dioxide 31 H Salicylates < 1.0 L Acetaminophen < 10 L - EKG Interpretation by Me Additional EKG results interpreted by me: EKG demonstrates sinus rhythm with a ventricular rate of 80 bpm, normal axis, QTC 462 ms, no evidence of acute ischemia in this EKG, compared with prior from 12/20/2018, without significant change. Discharge - Discharge Clinical Impression: Schizophrenia Qualifiers: Schizophrenia type: unspecified Qualified Code(s): F20.9 - Schizophrenia, unspecified Condition: Stable Disposition: PSYCH HOSP/UNIT Referrals: SHANNA ENGLAND PA-C [Primary Care Provider] - Follow up as needed
[2019-01-11 15:42] LABS: ABSOLUTE EOSINOPHILS # (AUTO) 0.2 10^3/uL (0.0-0.6); ABSOLUTE LYMPHOCYTES (AUTO) 2.4 10^3/uL (0.5-4.7); ABSOLUTE MONOCYTES (AUTO) 0.9 10^3/uL (0.1-1.4); ABSOLUTE NEUT (AUTO) 8.7 10^3/uL (1.7-8.2); BASOPHILS % (AUTO) 0.4 % (0-2); EOSINOPHILS % (AUTO) 1.9 % (0-6); HEMATOCRIT 43.2 % (36.0-47.0); HEMOGLOBIN 14.4 g/dL (12.0-15.5); LYMPHOCYTES % (AUTO) 19.5 % (13-45); MEAN CORPUSCULAR HEMOGLOBIN 31.6 pg (27.0-33.4); MEAN CORPUSCULAR HGB CONC 33.4 g/dL (32.0-36.0); MEAN CORPUSCULAR VOLUME 95 fl (80-97); MONOCYTES % (AUTO) 7.2 % (3-13); PLATELET COUNT 251 10^3/uL (150-450); RED BLOOD COUNT 4.56 10^6/uL (3.72-5.28); RED CELL DISTRIBUTION WIDTH 13.1 % (11.5-14.0); TOTAL CELLS COUNTED % (AUTO) 100 %; WHITE BLOOD COUNT 12.2 10^3/uL (4.0-10.5)
[2019-01-11 15:48] LABS: ACETAMINOPHEN < 10 ug/mL (10-30); ALANINE AMINOTRANSFERASE 19 U/L (9-52); ALCOHOL < 10 mg/dL (NONE DETECTED); ALKALINE PHOSPHATASE 103 U/L (38-126); ANION GAP 11 (5-19); ASPARTATE AMINO TRANSFERASE 27 U/L (14-36); BILIRUBIN,DIRECT 0.2 mg/dL (0.0-0.4); BILIRUBIN,TOTAL 0.6 mg/dL (0.2-1.3); BLOOD UREA NITROGEN 18 mg/dL (7-20); CALCIUM 9.4 mg/dL (8.4-10.2); CARBON DIOXIDE 31 mmol/L (22-30); CHLORIDE 102 mmol/L (98-107); GLUCOSE 102 mg/dL (75-110); POTASSIUM 3.8 mmol/L (3.6-5.0); SALICYLATE < 1.0 mg/dL (2.0-20.0); SODIUM 143.7 mmol/L (137-145); TOTAL PROTEIN 7.6 g/dL (6.3-8.2)
[2019-01-11] MEDS ORDERED: AMITRIPTYLINE HCL 75 MG TABLET PO ONE (17:22)
[2019-01-11] MEDS: HALOPERIDOL 5 MG TABLET PO SCH (17:39)
[2019-01-11 17:44] LABS: APPEARANCE,URINE CLEAR; BILIRUBIN,URINE NEGATIVE (NEGATIVE); COLOR,URINE YELLOW; GLUCOSE, URINE NEGATIVE (NEGATIVE); KETONES,URINE NEGATIVE (NEGATIVE); LEUKOCYTE ESTERASE,URINE NEGATIVE (NEGATIVE); NITRITE,URINE NEGATIVE (NEGATIVE); PROTEIN,URINE NEGATIVE (NEGATIVE); UROBILINOGEN,URINE NEGATIVE mg/dL (<2.0)
[2019-01-11 17:53] LABS: URINE AMPHETAMINES SCREEN NEGATIVE; URINE BARBITURATES SCREEN NEGATIVE; URINE BENZODIAZEPINES SCREEN UNCONFIRMED POSITIVE; URINE COCAINE SCREEN NEGATIVE; URINE MARIJUANA (THC) SCREEN NEGATIVE; URINE METHADONE SCREEN NEGATIVE; URINE PHENCYCLIDINE SCREEN NEGATIVE
[2019-01-11] MEDS ORDERED: LAMOTRIGINE 25 MG TAB.CHEW ONE (18:07)
[2019-01-11] MEDS ORDERED: AMITRIPTYLINE HCL 75 MG TABLET ONE (18:07)
[2019-01-11] MEDS: LAMOTRIGINE 25 MG TAB.CHEW PO SCH (18:19)
--- NOTE | 2019-01-11 18:33 | PSYCHOLOGICAL NOTE ---
Psych Note - Psych Note Date seen by psych provider: 01/11/19 Time seen by psych provider: 16:15 - 1630 Psych Note: Reason for consult: Hallucinations, paranoid delusions Patient presents to [facility] ED with concerns of increase in both auditory and visual hallucinations and paranoid delusions. Patient confirms this is chronic for her however has noticed an increase in the last 3 days. She reports she has had an increase in "responses from neighbors and friends." She reports that she is paranoid people are going to hurt her. She confirms that she has experienced this previously however she is concerned the recent increase indicates an oncoming full-blown psychosis. Patient reports that she just moved here to the local area approximately 2 months ago and was able to receive an appointment with [facility] for February 18, 2019. Patient was provided 3 months of her medication from her outpatient mental health provider prior to moving to the local area. Patient is diagnosed with schizoaffective disorder bipolar type. She disclosed that she had been stable for 3 months for the first time in a long time stating on previous medication she felt she was in "constant crisis" and went through frequent medication changes. Patient's report and descriptions of her chris lucinations is congruent with known manifestations i.e. in color, difficulty in telling hallucination from reality, auditory sounding like coming from people in the room etc. Patient is alert and orientated to person, place, time and circumstance. Mood is euthymic with congruent affect as evidenced by smiling engaging with clinician. Patient denies suicidal and homicidal ideation. Patient reports delusions of paranoia in addition to experiencing both auditory and visual hallucinations. Patient's descriptions of her hallucinations is congruent with no manifestations however patient currently is not demonstrating behaviors of responding to internal stimuli i.e. organized linear thought processes, eye contact is well-maintained, and conversational speech is within normal rate, tone and prosody. Patient confirms the last time she heard or saw anything was just prior to [facility] arrival. Intellectual abilities appear to be within the average range. Attention and concentration is currently good. Insight, judgment, impulse control is good as evidenced by patient observing increase in symptoms and has come to the hospital and attempt to prevent full- blown psychosis. Home medications per records indicates: Amitriptyline 75 mg nightly Cogentin 1 mg daily Lamictal 50 mg twice daily Abilify 20 mg q. a.m. Haldol 5 mg twice daily Norvasc sac 10 mg daily Cozaar 100-25 mg daily Lopressor 200 mg daily Medication recommendations per [facility]'s contracted psychiatrist Dr Guanakito GOULD are as follows: Haldol 5mg once continue home medications prescription for Haldol 5mg twice daily as needed upon discharge 295.70 (F25.0) schizoaffective disorder; bipolar type per history provided by patient Impression\\plan: Patient is recommended for overnight mental health observation. Patient is voluntary. Patient is demonstrating good insight, judgment and impulse control has come to [facility] and attempt to prevent full- blown psychosis. Patient denies suicidal and homicidal ideation. Patient was provided medications to assist current outbreak of symptoms. Patient will be reevaluated with probable discharge in the morning. Dr. Calhoun was consulted and the care management of this patient; attending physicians in agreement with recommendations and disposition.
[2019-01-11] MEDS ORDERED: HALOPERIDOL 5 MG TABLET PO ONE (18:45)
--- NOTE | 2019-01-11 23:02 | EKG REPORT ---
SEVERITY:- ABNORMAL ECG - SINUS RHYTHM CONSIDER LEFT VENTRICULAR HYPERTROPHY : Confirmed by: Nancy Leonard 11-Jan-2019 23:02:10
[2019-01-12] MEDS ORDERED: ARIPIPRAZOLE 5 MG TABLET PO SCH (08:00)
[2019-01-12] MEDS: HALOPERIDOL 5 MG TABLET PO SCH (09:25)
[2019-01-12] MEDS: LAMOTRIGINE 25 MG TAB.CHEW PO SCH (09:27)
[2019-01-12] MEDS ORDERED: HYDROCHLOROTHIAZIDE 25 MG TABLET PO SCH (10:00)
[2019-01-12] MEDS ORDERED: BENZTROPINE MESYLATE 1 MG TABLET PO SCH (10:00)
[2019-01-12] MEDS ORDERED: LOSARTAN POTASSIUM 50 MG TABLET PO SCH (10:00)
[2019-01-12] MEDS ORDERED: METOPROLOL SUCCINATE 50 MG TAB.SR.24H PO SCH (10:00)
[2019-01-12] MEDS ORDERED: AMLODIPINE BESYLATE 10 MG TABLET PO SCH (10:00)
--- NOTE | 2019-01-12 10:56 | PSYCHOLOGICAL NOTE ---
Psych Note - Psych Note Date seen by psych provider: 01/12/19 Time seen by psych provider: 08:16 - Re evaluation from . Psych Note: Reason for Consult: 1st Re evaluation, overnight MH observation, A/V Hallucinations which are chronic but worsened the last 3 days Contact Permissions: Unknown Patient is a 53 year old female who is in the ED on an overnight MH observation for increased A/V hallucinations the past 3 days. She was given addition Haldol to try to help with management of hallucinations. Today she said "I was given another Haldol, it helped but not as much as I thought, I did not get rest/sleep at first, still heard the voices but did go back to sleep." She denied hearing voices this morning. She confirmed she had moved to [place] from [place] 2 months ago, she first stopped at [facility] in [place] for 2 weeks and then made her way to [place] where her 2 sons live. She stated "I came here to help my kids out, one was moving." She noted she had been staying with her oldest son the past 2 days. She stated "I was claustrophobic and going stir crazy, I just needed to get out of the house." She denied SI/HI and commented "it is always people trying to hurt me, people listen to my thoughts through radio frequency, people in real life get mad at me." She commented the last 3 days she kept hearing the voices, people around her were talking about what the voices were saying, a voice told her to hit a kid her grandchildren were playing with at the park in order to get the parent mad, she got her grandchildren and took them home." She stated "I have episodes many times, this time is weird, it felt really real (people in the outside world seemed to be responding to it)." She asked for something for anxiety and mentioned in the past she had been prescribed Klonopin but knows doctors are being careful of such medications now. UDS was positive for benzodiazepines. She admitted she "takes Elavil at night for sleep, had been out for 10-11 days, often takes two pills not just one in order to sleep (why she is out of it), has been taking Benadryl since she is out which doesn't help much." She stated she still all her medications except the Elavil and Gabapentin. She again confirmed having an appointment with [facility] on 0 02/18/19. Patient was alert and oriented to self, person, place, time and situation. Mood was euthymic and perky with congruent affect. She denied SI/HI. She did not appear to be responding to internal stimuli as evidenced by fair eye contact, answering questions appropriately when addressed, staying on topic, carrying on dialogue conversation and being engaged in evaluation. She was able to express self, wants and needs. She denied hearing voices this morning. Thought processes were linear and organized. Conversational speech was within normal limits for rate, tone and prosody. Intellectual abilities are estimated to be average. Insight, judgment and insight were fair as evidenced by her awareness into what is chronic versus what is out of character. Also her ability to appropriate interact with others. Diagnosis: 295.70 (F25.0) Schizoaffective Sisorder, Bipolar Type per history per patient Medication recommendations made by the psychiatric medical provider, Dr. Guanakito MD., includes: Provide prescriptions for Haldol 5MG twice a day as needed for psychosis Elavil 75MG at night for sleep/anxiety/calming effect (already prescribed but out of since doubling up on dose) Impression/Plan: Patient is cleared from acute psychiatric services. She denied SI/HI, these were never presenting concerns and there was no observed psychosis that seemed to interfere with ability to interact appropriately with this clinician or express self/wants/needs. She already has outpatient services scheduled with [facility] on 02/18/19. She was provided the outpatient MH resource sheet which documented this appointment date and highlighted IFS MCM for crisis/talk therapy/linkage to other supports/services. She was made aware the doubling up of Elavil could increase/exacerbate/cause psychosis in addition to the poor sleep she has had in elast 10-12 days since being out of the Elavil. She repeated this information and seemed to understand how taking more of the Elavil and poor sleep made her hallucinations worse as evidenced by saying "so I did this to myself." Consulted with Dr. Calhoun regarding the management and care of patient. ED Physician in agreement with recommendations.
--- NOTE | 2019-01-12 11:35 | ER Document Report ---
Doctor's Note Notes: 01/12/19 11:33 Impression/Plan: Patient is cleared from acute psychiatric services. She denied SI/HI, these were never presenting concerns and there was no observed psychosis that seemed to interfere with ability to interact appropriately with this clinician or express self/wants/needs. She already has outpatient services scheduled with [facility] on 02/18/19. She was provided the outpatient MH resource sheet which documented this appointment date and highlighted IFS MCM for crisis/talk therapy/linkage to other supports/services. Consulted with Dr. Calhoun regarding the management and care of patient. ED Physician in agreement with recommendations. As the rounding physician this AM, I assessed the patient's labs, vitals, and records. No concerning findings this morning. Patient denies any acute complaints. Patient is cleared for disposition by behavioral health. PHYSICAL EXAMINATION: GENERAL: Well-appearing, well-nourished and in no acute distress. HEAD: Atraumatic, normocephalic. EYES: Pupils equal round extraocular movements intact, conjunctiva are normal. ENT: Nares patent NECK: Normal range of motion LUNGS: No respiratory distress Musculoskeletal: Normal range of motion NEUROLOGICAL: Normal speech, normal gait. PSYCH: Normal mood, normal affect. SKIN: Warm, Dry, normal turgor, no rashes or lesions noted. Home-going medication recommendations include Haldol 5 mg twice daily as needed and Elavil 75 mg nightly.
[2019-01-12 11:48] VITALS: BP 110/78
== END 2019-01-12 11:48 | disposition home or self-care (01) ==
LOC: ER 14:00
DX: F25.0 Schizoaffective disorder, bipolar type (principal); D72.829 Elevated white blood cell count, unspecified; I10 Essential (primary) hypertension; F17.210 Nicotine dependence, cigarettes, uncomplicated; Z79.899 Other long term (current) drug therapy; Z91.14 Patient's other noncompliance with medication regimen
CPT/HCPCS: 93005; 99285; 36415; 80307 ×4; 85025; 80053; 81001; 93010; J3490 ×3